=== PATIENT | male | born 1965 | race Two or more races ===

== ENCOUNTER 2018-06-16 08:22 | Outpatient (CLI) | payer OTHER | END 2018-06-16 09:51 | disposition home or self-care (01) | LOC: LAB 08:22 | DX: R73.09 Other abnormal glucose (principal); R03.0 Elevated blood-pressure reading, without diagnosis of hypertension; E03.8 Other specified hypothyroidism; Z12.11 Encounter for screening for malignant neoplasm of colon; N40.0 Benign prostatic hyperplasia without lower urinary tract symptoms; E78.4 Other hyperlipidemia; M10.9 Gout, unspecified ==

== ENCOUNTER 2018-06-16 09:19 | Outpatient (CLI) | payer OTHER | END 2018-06-16 09:57 | disposition home or self-care (01) | LOC: SONOGRAMA 09:19 | DX: R10.84 Generalized abdominal pain (principal) ==

== ENCOUNTER 2018-07-05 09:56 | Outpatient (CLI) | payer OTHER | END 2018-07-05 10:12 | disposition home or self-care (01) | LOC: LAB 09:56 | DX: H25.011 Cortical age-related cataract, right eye (principal); Z98.41 Cataract extraction status, right eye ==